=== PATIENT | female | born 1970 | race Caucasian/White ===

== ENCOUNTER → 2025-08-08 | Outpatient (CLI) | payer BC ==
[~2025-08-08] MED LIST: ASPI81TA26 PO; THAL100C PO; VITA-243 PO
== END ==
LOC: M WHC 07:56
PROVIDERS: ATTEND Surgery
DX: N63.13 Unspecified lump in the right breast, lower outer quadrant (principal)

== ENCOUNTER → 2025-08-14 | Outpatient (CLI) | payer BC ==
[2025-08-14 08:57] VITALS: TEMP 98.5
[2025-08-14 09:48] VITALS: BP 132/78; O2SAT 100
== END ==
LOC: M WHCPRO 08:20
PROVIDERS: ATTEND Surgery
DX: N63.13 Unspecified lump in the right breast, lower outer quadrant (principal); R92.8 Other abnormal and inconclusive findings on diagnostic imaging of breast